=== PATIENT | female | born 1955 | race Caucasian/White ===

== ENCOUNTER 2022-01-21 10:38 | Emergency (ER) | payer MEDICARE, SELFPAY ==
[2022-01-21 10:46] VITALS: BP 172/71; PULSE 61; RESP 16; TEMP 36.5; O2SAT 100
--- NOTE | 2022-01-21 11:15 | DI.CT_ITS ---
Exam(s) CT RENAL COLIC WO EXAM: CT RENAL COLIC WO INDICATION: right flank pain. COMPARISON: No exams were available for comparison TECHNIQUE: CT examination was performed without contrast administration. FINDINGS: Images obtained through the lung bases are unremarkable. Visualized portions of the liver and splee n appear intact. Visualized portions of the pancreas are unremarkable. Gallbladder and bile ducts are CT normal. Abdominal aorta is of normal diameter. No significant abdominal wall hernia. No significant abdominal or pelvic adenopathy. Note is made o f an apparent ileostomy. Adrenals appear normal bilaterally. The kidneys are normal in size and shape. There is no evidence of a renal mass. The right kidney is hydronephrotic with dilatation of the right ureter to a level couple of cm above the ureterovesical junction on the right where there is an approximately 3 millimeter in diameter obs tructing stone. No additional urinary tract calcification, either on the right or left. Urinary bladder appears norm al. IMPRESSION: 3 millimeter obstructing stone of the distal right ureter as described above. No additional signific ant findings apart from prior ileostomy.. RADIATION DOSE DELIVERED: 594.79mGy.cm DLP 594.79mGy.cm Total DLP !Error CTDIvol DATA REPOSITORY: All CT scans at this facility are submitted to the National Radiology Data Registry (NRDR) Dose Index Registry (DIR) with the [employer] ([employer]). RADIATION OPTIMIZATION: All CT scans at this facility use at least one of these dose optimization te chniques: automated exposure control; mA and/or kV adjustment per patient size (includes targeted exa ms where dose is matched to clinical indication); or iterative reconstruction.
--- NOTE | 2022-01-21 11:17 | W.ED.GENAD ---
Discharge Plan Disposition Patient Disposition: HOME Condition: Stable Discharge Details Clinical Impression: Ureterolithiasis Primary Care Provider: Unknown,Unknown ED Provider: Patricia Gage Home Meds and New Rx's Prescriptions: Continued betamethasone dipropionate 0.05 % ointment 1 applic TOPICAL BID Label Comments: APPLY TO AFFECTED AREA(S) ON PSORIASIS TWO TIMES A DAY calcipotriene 0.005 % ointment 1 applic TOPICAL BID Label Comments: APPLY TO ARMS TWO TIMES A DAY DIRECTED Discharge Instructions Instructions: Tamsulosin (By mouth), Kidney Stones (ED) Additional Instructions: Please return immediately to the emergency department if you develop any new or worsening symptoms, if your condition does not improve as expected, or if you become otherwise concerned. It is extremely important that you call soon as possible to make an appointment to be seen in follow-up for this visit by your primary care doctor and a urologist as we discussed. Referrals: Rodolfo Teran MD [ [facility] STAFF PHYSICIAN] - Discharge Data Discharge Date/Time-TO BE ENTERED AT DEPARTURE: 01/21/22 14:32 Medical Decision Making Sachi Gill is a 66-year-old woman with a history of renal failure in the past, Crohn's disease status post ileostomy, psoriatic arthritis, kidney stones in the past presenting to the emergency department with right-sided flank pain. Patient reports that approximately 6 years ago she had a 1 cm ureteral stone on the left that required procedural removal, and was told at the time that she did also have a kidney stone on the right. Patient reports that for 4 days she has had mild intermittent right flank pain that radiates to the right lower quadrant. Patient reports that pain is similar to left-sided kidney stone pain she had in the past in quality, more mild now in severity. She denies any other pain, fever, cough, shortness of breath, vomiting, numbness, weakness, rash, dysuria. Patient does not take any immunosuppressives. On exam Pt is well and non-toxic appearing. Appears comfortable. Mild right CVA and right LQ TTP without peritoneal signs. Concern for ureterolithiasis, UTI, appendicitis, other. Exam/hx at this time not c/w mesenteric ischemia, acute aortic pathology, sepsis, acute coronary syndrome. Plan for IV placement, IV fluid hydration, CT renal, screening labs. CT shows 3mm right obstructing stone. Labs show no UTI, Cr 1.4. Pt reports that she feels pain is well managed with tylenol (cannot take NSAIDs due to h/o renal failure). Plan for tamsulosin, outpt f/u with urology and PCP. I had a discussion with Patient regarding return to emergency department precautions, home care, and importance of outpatient follow-up. Pt verbalizes understanding of the plan and is amenable. Patient discharged to home with clear plan for outpatient follow-up. All questions were answered. Disposition decision was made weighing the risks and benefits of hospitalization versus outpatient treatment, the risk for further decompensation, and the patient's wishes. Medical Records Medical records reviewed: Yes I reviewed the patient's medical records. Imaging Data Radiologic Study: Attestation: I personally reviewed and interpreted this imaging study as follows: Radiologist's impression: EXAM:? CT RENAL COLIC WO INDICATION:? right flank pain. COMPARISON:? No exams were available for comparison TECHNIQUE:? CT examination was performed without contrast administration. FINDINGS: ?Images obtained through the lung bases are unremarkable.? Visualized portions of the liver and spleen appear intact. Visualized portions of the pancreas are unremarkable. Gallbladder and bile ducts are CT normal. Abdominal aorta is of normal diameter. No significant abdominal wall hernia.? No significant abdominal or pelvic adenopathy.? Note is made of an apparent ileostomy. Adrenals appear normal bilaterally. The kidneys are normal in size and shape.? There is no evidence of a renal mass. The right kidney is hydronephrotic with dilatation of the right ureter to a level couple of cm above the ureterovesical junction on the right where there is an approximately 3 millimeter in diameter obstructing stone. No additional urinary tract calcification, either on the right or left.? Urinary bladder appears normal. IMPRESSION: 3 millimeter obstructing stone of the distal right ureter as described above.? No additional significant findings apart from prior ileostomy.. Lab Data Lab results reviewed: Yes I reviewed the patient's lab results. Labs: Laboratory Tests Range/Units 01/21/22 01/21/22 01/21/22 10:55 11:25 11:25 WBC (4.4-10.8) 10^3/uL 6.68 RBC (3.93-5.22) 10^6/uL 4.19 Hgb (11.2-15.7) g/dL 12.6 Hct (36.0-46.0) % 39.4 MCV (80-95) fL 94 MCH (27.0-33.0) pg 30.1 MCHC (32.0-36.0) % 32.0 RDW (11.7-14.6) % 13.9 Plt Count (130-400) 10^3/uL 342 MPV (8.0-11.0) fL 9.5 Immature Gran % 0.3 Neutrophils % 68.3 Lymphocytes % 21.3 Monocytes % 7.9 Eosinophils % 1.9 Basophils % 0.3 Nucleated RBC % (0.0-0.3) % 0.0 Absolute Neutrophils (1.2-6.7) 10^3/uL 4.56 Absolute Lymphocytes (1.2-3.4) 10^3/uL 1.42 Absolute Monocytes (0.1-0.8) 10^3/uL 0.53 Absolute Eosinophils (0.0-0.7) 10^3/uL 0.13 Absolute Basophils (0.0-0.2) 10^3/uL 0.02 Sodium (136-145) mmol/L 142 Potassium (3.5-5.1) mmol/L 3.9 Chloride (98-107) mmol/L 106 Carbon Dioxide (21.0-32.0) mmol/L 25.8 Anion Gap (3-11) mmol/L 10.2 BUN (7-18) mg/dL 21 H Creatinine (0.55-1.02) mg/dL 1.4 H Estimated GFR/1.73 m2 (mL/min/1.73m2) 37.39 Glucose (74-106) mg/dL 92 Calcium (8.5-10.1) mg/dL 8.4 L Total Bilirubin (0.2-1.0) mg/dL 0.2 AST (15-37) U/L 20 ALT (14-59) U/L 17 Alkaline Phosphatase (46-116) U/L 96 Total Protein (6.4-8.2) g/dL 7.9 Albumin (3.4-5.0) g/dL 3.4 Urine Color (Yellow) Yellow Urine Clarity (Clear) Clear Urine pH (5-8) 5.5 Ur Specific [place] (1.005-1.025) 1.020 Urine Protein (Negative) mg/dL Negative Urine Ketones (Negative) mg/dL Negative Urine Blood (Negative) Small H Urine Nitrite (Negative) Negative Urine Bilirubin (Negative) Negative Urine Urobilinogen (Up TO 0.2) EU/dL 0.2 Ur Leukocyte Esterase (Negative) Negative Urine RBC (0-2) HPF 3-5 H Urine WBC (0-5) HPF Negative Ur Epithelial Cells (Negative) HPF Rare Urine Crystals (Negative) HPF Negative Urine Bacteria (Negative) HPF Rare Urine Casts (Negative) LPF Negative Urine Mucus (Negative) Negative Urine Other (Negative) Negative Ur Culture Indicated? No Urine Glucose (Negative) mg/dL Negative HPI General Mode of arrival: ambulatory. Date/Time Provider Initiated Documentation: 01/21/22 11:04. Limitations to Documentation: no limitations. Information obtained by: patient, RN notes reviewed and old records reviewed. HPI Narrative: Sachi Gill is a 66-year-old woman with a history of renal failure in the past, Crohn's disease status post ileostomy, psoriatic arthritis, kidney stones in the past presenting to the emergency department with right-sided flank pain. Patient reports that approximately 6 years ago she had a 1 cm ureteral stone on the left that required procedural removal, and was told at the time that she did also have a kidney stone on the right. Patient reports that for 4 days she has had mild intermittent right flank pain that radiates to the right lower quadrant. Patient reports that pain is similar to left-sided kidney stone pain she had in the past in quality, more mild now in severity. She denies any other pain, fever, cough, shortness of breath, vomiting, numbness, weakness, rash, dysuria. Patient does not take any immunosuppressives. Related Data Home Medications Medication Instructions Recorded Confirmed betamethasone dipropionate 0.05 % 1 applic topical BID 01/21/22 01/22/22 topical ointment calcipotriene 0.005 % topical 1 applic topical BID 01/21/22 01/22/22 ointment Allergies Allergy/AdvReac Type Severity Reaction Status Date / Time naproxen [From Aleve] AdvReac Severe kidney Verified 01/22/22 12:57 failure General Stated Complaint: FlankPain MAGDALENE: 3 Review of Systems Narrative: Constitutional: denies fevers Eyes: denies eye pain ENT: denies ear pain, dental pain, sore throat Cardiovascular: denies chest pain, edema Respiratory: denies SOB, cough GI: denies vomiting, diarrhea, reports RLQ pain : denies dysuria, reports flank pain MSK: denies back pain, neck pain, arthralgias, myalgias Skin: denies rash Neuro: denies headaches, numbness, weakness PFSH All Active Problems Elevated serum creatinine (Acute) Ureterolithiasis (Acute) Medical History Crohn's disease Renal failure Rheumatoid arthritis Surgical History H/O ileostomy H/O shoulder replacement History of tonsillectomy and adenoidectomy History of ureteroscopy Social History Smoking/Tobacco Use Status: Never Smoking risk assessment performed?: Yes Drug use: Never Substance use type: does not use Do you feel safe at home: Yes Exam Narrative Exam Narrative: Constitutional: well and [id number], pleasant, conversing normally HENT: head atraumatic/normocephalic/normal inspection, mucous membranes moist Eyes: conjunctiva normal, sclera normal, pupils 3mm b/l Neck: no stridor, normal ROM, trachea midline Resp: normal work of breathing, speaking in full sentences Cardio: normal rate, normal rhythm GI: abdomen soft, mild focal RLQ TTP, no rebound, no guarding, non-distended, ileostomy RLQ with soft stool Back: normal inspection, no rash, mild right CVA TTP, no left CVA TTP Skin: warm, dry, normal color, no rash Neuro: alert, not altered, grossly non-focal, normal tone Ext: no edema Psych: normal mood, normal affect, normal behavior Course Vital Signs Vital signs: Vital Signs Temperature 36.5 C 01/21/22 10:46 Pulse 61 01/21/22 10:46 Respiratory Rate 16 01/21/22 10:46 Blood Pressure 172/71 H 01/21/22 10:46 Pulse Oximetry 100 01/21/22 10:46 Temperature 36.5 C 01/21/22 10:46 Temperature Source Temporal Artery Scan 01/21/22 10:46 Pulse 61 01/21/22 10:46 Respiratory Rate 16 01/21/22 10:46 Respiratory Effort 01/21/22 10:49 Blood Pressure 172/71 H 01/21/22 10:46 Blood Pressure Position Sitting 01/21/22 10:46 Pulse Oximetry 100 01/21/22 10:46 Oxygen Delivery Method Room Air 01/21/22 10:46 Oxygen Flow Rate 0 01/21/22 10:46 Pain Level 6 01/21/22 10:46
[2022-01-21 11:31] LABS: Abs Immature Grans 0.02 10^3/uL (0.0-0.06); Absolute Basophil Count 0.02 10^3/uL (0.0-0.2); Absolute Eosinophil Count 0.13 10^3/uL (0.0-0.7); Absolute Lymphocyte Count 1.42 10^3/uL (1.2-3.4); Absolute Monocyte Count 0.53 10^3/uL (0.1-0.8); Absolute Neutrophil Count 4.56 10^3/uL (1.2-6.7); Basophils % 0.3; Eosinophils % 1.9; HCT 39.4 % (36.0-46.0); HGB 12.6 g/dL (11.2-15.7); Immature Grans % 0.3; Lymphocytes % 21.3; MCH 30.1 pg (27.0-33.0); MCV 94 fL (80-95); MPV 9.5 fL (8.0-11.0); Monocytes % 7.9; Neutrophils % 68.3; Platelet Count 342 10^3/uL (130-400); RBC 4.19 10^6/uL (3.93-5.22); RDW 13.9 % (11.7-14.6); RDW-SD 47.5 fL; WBC 6.68 10^3/uL (4.4-10.8)
[2022-01-21] MEDS: Normal Saline 1,000 ML 1000 ML IV (11:38)
[2022-01-21 11:48] LABS: ALT 17 U/L (14-59); AST 20 U/L (15-37); Albumin 3.4 g/dL (3.4-5.0); Alkaline Phosphatase 96 U/L (46-116); Anion Gap 10.2 mmol/L (3-11); BUN 21 mg/dL (7-18); Bilirubin, Total 0.2 mg/dL (0.2-1.0); CO2 25.8 mmol/L (21.0-32.0); CREATININE 1.4 mg/dL (0.55-1.02); Calcium 8.4 mg/dL (8.5-10.1); Chloride 106 mmol/L (98-107); Estimated GFR 37.39 (mL/min/1.73m2); Glucose 92 mg/dL (74-106); Potassium 3.9 mmol/L (3.5-5.1); Sodium 142 mmol/L (136-145); Total Protein 7.9 g/dL (6.4-8.2)
[2022-01-21 12:05] LABS: Bilirubin Negative (Negative); Blood Small (Negative); Clarity Clear (Clear); Glucose Negative (Negative); Ketones Negative (Negative); Leukocyte Esterase Negative (Negative); Nitrite Negative (Negative); Urobilinogen 0.2 EU/dL (Up TO 0.2); pH 5.5 (5-8)
[2022-01-21 12:20] LABS: Bacteria Rare HPF (Negative); C & S Indicated? No; Casts Negative LPF (Negative); Crystals Negative HPF (Negative); Epithelial Cells Rare HPF (Negative); Mucus Negative (Negative); Other Cells Negative (Negative); WBC Negative HPF (0-5)
[2022-01-21] MEDS: Acetaminophen 500 MG TAB 1000 MG PO (12:53)
[2022-01-21 14:20] VITALS: BP 146/88; PULSE 61; RESP 20; TEMP 37.5; O2SAT 99
--- NOTE | 2022-01-21 14:34 | NUR.NOTE ---
Nursing Note: referral to [facility] urology for kidney stones this week
== END 2022-01-21 14:32 | disposition home or self-care (01) ==
PROVIDERS: Emergency Provider Student in an Organized Health Care Education/Training Program
DX: N20.1 Calculus of ureter (principal); Z87.442 Personal history of urinary calculi
CPT/HCPCS: 36415; 80053; 96360; 99284; 74176; 81003; 81015; 85025

== ENCOUNTER → 2022-01-22 12:49 | Outpatient (BNVA) | payer MEDICARE, SELFPAY | PROVIDERS: Visit Provider Urology | DX: K50.90 Crohn's disease, unspecified, without complications (principal); Z98.890 Other specified postprocedural states; N20.0 Calculus of kidney; N20.1 Calculus of ureter; R79.89 Other specified abnormal findings of blood chemistry | CPT/HCPCS: 99215 ==

== ENCOUNTER 2022-02-05 03:23 | Outpatient (CLI) | payer MEDICARE, SELFPAY ==
[2022-02-05 10:26] LABS: BUN 17 mg/dL (7-18); CREATININE 1.1 mg/dL (0.55-1.02); Estimated GFR 49.39 (mL/min/1.73m2)
== END 2022-02-05 03:24 | disposition home or self-care (01) ==
LOC: LBO 03:23
PROVIDERS: Visit Provider Urology
DX: R79.89 Other specified abnormal findings of blood chemistry (principal)
CPT/HCPCS: 36415; 84520; 82565

== ENCOUNTER 2023-01-14 02:35 | Outpatient (CLI) | payer MEDICARE, SELFPAY ==
--- NOTE | 2023-01-14 07:45 | DI.US_ITS ---
Exam(s) US RENAL EXAM: US RENAL CLINICAL HISTORY: monitor for new stones, URIC ACID KIDNEY STONE, N20.0. TECHNIQUE: Hill scale, color and spectral Doppler were used. COMPARISON: CT CT RENAL COLIC WO from 01/21/2022 FINDINGS: Renal size in cm: Right: 8.6 x 3.2 x 4.0 left: 8.7 x 3.2 x 3 6 Echogenicity: Normal Hydronephrosis: No Cyst or mass: No Nephrolithiasis: 4 millimeters stone lower pole right kidney. Bladder empty. Not evaluated. IMPRESSION: 4 millimeter non-obstructing stone lower pole right kidney. DATA REPOSITORY:
== END 2023-01-14 02:55 ==
PROVIDERS: Visit Provider Urology
DX: N20.0 Calculus of kidney (principal)
CPT/HCPCS: 76770

== ENCOUNTER → 2023-01-26 09:32 | Outpatient (BNVA) | payer MEDICARE, SELFPAY | PROVIDERS: Visit Provider Urology | DX: N20.0 Calculus of kidney (principal) | CPT/HCPCS: 99213 ==

== ENCOUNTER → 2024-01-25 09:44 | Outpatient (BNVA) | payer MEDICARE, SELFPAY | PROVIDERS: Visit Provider Urology | DX: N20.0 Calculus of kidney (principal); R79.89 Other specified abnormal findings of blood chemistry | CPT/HCPCS: 76775 ==

== ENCOUNTER 2024-01-25 10:31 | Outpatient (CLI) | payer MEDICARE, SELFPAY ==
[2024-01-25 11:22] LABS: CREATININE 1.1 mg/dL (0.55-1.02); Estimated GFR 54.06 (mL/min/1.73m2)
== END 2024-01-25 10:32 | disposition home or self-care (01) ==
LOC: LBO 10:31
PROVIDERS: Visit Provider Urology
DX: R79.89 Other specified abnormal findings of blood chemistry (principal)
CPT/HCPCS: 36415; 82565

== ENCOUNTER → 2025-04-26 10:14 | Outpatient (BNVA) | payer MEDICARE, SELFPAY | PROVIDERS: PCP Nurse Practitioner Family; Referring Provider Nurse Practitioner Family; Visit Provider Urology | DX: N20.0 Calculus of kidney (principal); R79.89 Other specified abnormal findings of blood chemistry | CPT/HCPCS: 76775 ==

== ENCOUNTER 2025-04-26 11:19 | Outpatient (CLI) | payer MEDICARE, SELFPAY ==
[2025-04-26 12:40] LABS: Anion Gap 7.6 mmol/L (3-11); BUN 16 mg/dL (9-23); CO2 27.4 mmol/L (20.0-31.0); Calcium 9.0 mg/dL (8.3-10.6); Chloride 109 mmol/L (98-107); Glucose 98 mg/dL (74-106); Potassium 4.2 mmol/L (3.5-5.1); Sodium 144 mmol/L (136-145)
== END 2025-04-26 11:20 | disposition home or self-care (01) ==
LOC: LBO 11:19
PROVIDERS: PCP Nurse Practitioner Family; Visit Provider Urology
DX: R79.89 Other specified abnormal findings of blood chemistry (principal); N20.0 Calculus of kidney
CPT/HCPCS: 36415; 80048